=== PATIENT | female | born 1980 | race Caucasian/White ===

== ENCOUNTER 2018-08-16 14:28 | Outpatient (CLI) | payer MEDICAID, SELFPAY | END 2018-08-16 14:48 | PROVIDERS: PCP Nurse Practitioner Family; Visit Provider Nurse Practitioner Family | DX: B20 Human immunodeficiency virus [HIV] disease (principal); Z79.899 Other long term (current) drug therapy; B18.2 Chronic viral hepatitis C | CPT/HCPCS: 99214 ==

== ENCOUNTER 2018-08-27 13:30 | Outpatient (CLI) | payer MEDICAID, SELFPAY | END 2018-08-27 13:50 | PROVIDERS: PCP Nurse Practitioner Family; Referring Provider Nurse Practitioner Family; Visit Provider Internal Medicine Infectious Disease | DX: B20 Human immunodeficiency virus [HIV] disease (principal); Z79.899 Other long term (current) drug therapy; Z23 Encounter for immunization | CPT/HCPCS: 90471; 90472; 90686; 90715; 99215 ==

== ENCOUNTER 2018-10-08 16:56 | Outpatient (CLI) | payer MEDICAID, SELFPAY ==
--- NOTE | 2018-10-08 16:59 | W.CCNOTE ---
Date of service: 10/08/18 Time of Service: 17:00 Comprehensive Care Clinic Note Note: [facility] [address] [place] [address] [facility] Follow Up Visit Name: Jessica Calloway Date of : 1980 Date of Service: 10/08/2018 SUBJECTIVE: ?I haven?t been injecting. It?s been many months. I?m not using and not even having any Twisted Teas. I have an apartment now and a phone so I can get the hep C medication delivered to me. I wanted to start it before this but not having a phone got in the way. I?m going every day to the clinic for my Suboxone. I have been taking my HIV medicine every day and haven?t missed any.? Jessica is seen today at her request to talk about hepatitis C with Mavyret 3 tablets a day which was supposed to have started 2 months ago ? in fact the Prior Authorization for the medication expires in 2 days. The [facility], [facility], has had the information but say they need a new RX. A new PA will also have to be done. She says she is committed to taking it at this point. Her Substance Abuse MAT Clinic counselor says she is dosing and her UDSs have been appropriate. ROS: She has not had fevers, chills, night sweats but admits she does sweat a lot anyway. No neck pain or stiffness, chest pain or palpitations or shortness of breath. Denies abdominal pain or bloating, GI distress or N/V/D. She has some generalized joint aching but no swelling or decreased ROM. Denies swelling of her legs and ankles. Has had no injection site abscesses. LNMP: Now Past Medical History: Severe OUD and poly substance abuse with frequent relapses, especially to Cocaine and BZD abuse. HCV since early with a liver biopsy in 2002 that showed stage 3 fibrosis. A fibroscan was done at [facility] on 11/22/2017 again showing advanced hepatic fibrosis (F3). She is treatment naive. She was Dx with HIV in 2013 and started HAART in 2016. PTSD, Anxiety/Depression and she continues to see her psychiatrist. Social History: Has her own apartment in [place] and now has a phone. Health Insurance: [place] Medicaid - active Other Psychosocial Considerations: Has some transportation challenges but is getting to the MAT clinic to dose with the Suboxone 8 mg a day. Family History: Addiction, bipolar, depression Jessica Calloway, 1980 pg2. Immunization History: Flu vaccine received when she had a MD visit for HIV F/U on Monday08/27/2018 OBJECTIVE Temp: 98.3 Pulse: 80 Resp: 14 BP: 120/72 General: Awake, alert, AINAD, Weight 209# Skin: faded tract richardson and no abscesses. W/D. Eyes: Non icteric Neck: supple, non-tender Cardiac: RRR No MCRG Chest/Lungs: Clear Abdomen: obese, NT, ND, no palp OGM Extremities: No edema Musculoskeletal: no joint effusions, FROM Lymph: non palp Neuro: gait strong and steady, no tremor Psych: Good eye contact, cooperative attitude, normal affect, speech clear and coherent, mood mildly anxious, memory intact for short and fpc, orientation intact x4, fairly good attention span, normal thought process and content. ASSESSMENT/PLAN: 1. Long standing HCV Had Prior Authorization Approval from her health insurance to pay for RX [place]. Mavyret 100/40/mg tabs, 3 tabs once daily for 8 weeks that was valid from 08/10/2018 ? 10/10/2018 but she had not phone and was not able to get the prescription from the specialty pharmacy. A repeat PA will be completed after contacting the pharmacy and getting more information on what they need besides a new RX. I will help to facilitate her connecting to the pharmacy once a new PA is Approved.. 2. Severe OUD and poly substance abuse, H/O IVDU Cassie is to continue to dose daily with the Suboxone 8 mg and take all her other medications as prescribed. Abstain for all illicit drug use, no IVDU and keep all her counseling appointments. She is also to keep all the appointments she has wit her psychiatrist and take her psych meds as directed. MD visit scheduled: Due Early in 2019 and RCT will need to be arranged to bring her here. Lab Work: UCG negative on dip at the clinic last Monday. ASO: Keep contact with [place] for maintaining secure housing. Provider of Care: Sarah Ding NP
--- NOTE | 2018-10-10 17:01 | CCCE_ITS ---
Date of service: 10/08/18 Time of Service: 17:00 Comprehensive Care Clinic Note Note: [facility] [address] [place] [address] [facility] Follow Up Visit Name: Jessica Calloway Date of : 1980 Date of Service: 10/08/2018 SUBJECTIVE: ?I haven?t been injecting. It?s been many months. I?m not using and not even having any Twisted Teas. I have an apartment now and a phone so I can get the hep C medication delivered to me. I wanted to start it before this but not having a phone got in the way. I?m going every day to the clinic for my Suboxone. I have been taking my HIV medicine every day and haven?t missed any.? Jessica is seen today at her request to talk about hepatitis C with Mavyret 3 tablets a day which was supposed to have started 2 months ago ? in fact the Prior Authorization for the medication expires in 2 days. The [facility], has had the information but say they need a new RX. A new PA will also have to be done. She says she is committed to taking it at this point. Her Substance Abuse MAT Clinic counselor says she is dosing and her UDSs have been appropriate. ROS: She has not had fevers, chills, night sweats but admits she does sweat a lot anyway. No neck pain or stiffness, chest pain or palpitations or shortness of breath. Denies abdominal pain or bloating, GI distress or N/V/D. She has some generalized joint aching but no swelling or decreased ROM. Denies swelling of her legs and ankles. Has had no injection site abscesses. LNMP: Now Past Medical History: Severe OUD and poly substance abuse with frequent relapses , especially to Cocaine and BZD abuse. HCV since early with a liver biopsy in 2002 that showed stage 3 fibrosis. A fibroscan was done at [facility] on again showing advanced hepatic fibrosis (F3). She is treatment naive. She was Dx with HIV in 2013 and started HAART in 2016. PTSD, Anxiety/Depression and she continues to see her psychiatrist. Social History: Has her own apartment in [place] and now has a phone. Health Insurance: [place] Medicaid - active Other Psychosocial Considerations: Has some transportation challenges but is getting to the MAT clinic to dose with the Suboxone 8 mg a day. Family History: Addiction, bipolar, depression Jessica Calloway, 1980 pg2. Immunization History: Flu vaccine received when she had a MD visit for HIV F/U on Monday08/27/2018 OBJECTIVE Temp: 98.3 Pulse: 80 Resp: 14 BP: 120/72 General: Awake, alert, AINAD, Weight 209# Skin: faded tract richardson and no abscesses. W/D. Eyes: Non icteric Neck: supple, non-tender Cardiac: RRR No MCRG Chest/Lungs: Clear Abdomen: obese, NT, ND, no palp OGM Extremities: No edema Musculoskeletal: no joint effusions, FROM Lymph: non palp Neuro: gait strong and steady, no tremor Psych: Good eye contact, cooperative attitude, normal affect, speech clear and coherent, mood mildly anxious, memory intact for short and mcc, orientation intact x4, fairly good attention span, normal thought process and content. ASSESSMENT/PLAN: 1. Long standing HCV Had Prior Authorization Approval from her health insurance to pay for RX [place]. Mavyret 100/40/mg tabs, 3 tabs once daily for 8 weeks that was valid from 08/10/2018 ? 10/10/2018 but she had not phone and was not able to get the prescription from the specialty pharmacy. A repeat PA will be completed after contacting the pharmacy and getting more information on what they need besides a new RX. I will help to facilitate her connecting to the pharmacy once a new PA is Approved.. 2. Severe OUD and poly substance abuse, H/O IVDU Cassie is to continue to dose daily with the Suboxone 8 mg and take all her other medications as prescribed. Abstain for all illicit drug use, no IVDU and keep all her counseling appointments. She is also to keep all the appointments she has wit her psychiatrist and take her psych meds as directed. MD visit scheduled: Due Early in 2019 and RCT will need to be arranged to bring her here. Lab Work: UCG negative on dip at the clinic last Monday. ASO: Keep contact with [place] for maintaining secure housing. Provider of Care: Sarah Ding NP
== END 2018-10-08 17:16 ==
PROVIDERS: PCP Nurse Practitioner Family; Visit Provider Nurse Practitioner Family
DX: B18.2 Chronic viral hepatitis C (principal); B20 Human immunodeficiency virus [HIV] disease; Z79.899 Other long term (current) drug therapy; F11.20 Opioid dependence, uncomplicated
CPT/HCPCS: 99214

== ENCOUNTER 2019-03-05 10:15 | Outpatient (CLI) | payer MEDICAID, SELFPAY ==
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
== END 2019-03-05 10:35 ==
PROVIDERS: PCP Nurse Practitioner Family; Visit Provider Nurse Practitioner Family
DX: B20 Human immunodeficiency virus [HIV] disease (principal); B18.2 Chronic viral hepatitis C; Z79.899 Other long term (current) drug therapy
CPT/HCPCS: 99214

== ENCOUNTER 2019-09-20 14:24 | Outpatient (CLI) | payer MEDICAID, SELFPAY ==
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
== END 2019-09-20 14:44 ==
PROVIDERS: PCP Nurse Practitioner Family; Visit Provider Nurse Practitioner Family
DX: B20 Human immunodeficiency virus [HIV] disease (principal); B18.2 Chronic viral hepatitis C; Z79.899 Other long term (current) drug therapy; F11.20 Opioid dependence, uncomplicated; F43.10 Post-traumatic stress disorder, unspecified
CPT/HCPCS: 99214

== ENCOUNTER 2021-01-15 15:35 | Outpatient (CLI) | payer MEDICAID, SELFPAY ==
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
== END 2021-01-15 15:36 | disposition home or self-care (01) ==
LOC: CCC 15:36
PROVIDERS: PCP Nurse Practitioner Family; Visit Provider Nurse Practitioner Family
DX: B20 Human immunodeficiency virus [HIV] disease (principal); Z79.899 Other long term (current) drug therapy; F11.20 Opioid dependence, uncomplicated; F43.10 Post-traumatic stress disorder, unspecified; F39 Unspecified mood [affective] disorder; L66.2 Folliculitis decalvans
CPT/HCPCS: 99214

== ENCOUNTER 2021-04-29 15:07 | Outpatient (CLI) | payer MEDICAID, SELFPAY ==
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
== END 2021-04-29 15:08 | disposition home or self-care (01) ==
LOC: CCC 15:09
PROVIDERS: PCP Nurse Practitioner Family; Visit Provider Nurse Practitioner Family
DX: B20 Human immunodeficiency virus [HIV] disease (principal); Z79.899 Other long term (current) drug therapy; F11.20 Opioid dependence, uncomplicated; F41.9 Anxiety disorder, unspecified
CPT/HCPCS: 99214

== ENCOUNTER 2021-08-30 09:00 | Outpatient (CLI) | payer MEDICAID, SELFPAY ==
--- NOTE | 2021-08-30 14:05 | CCCE_ITS ---
Date of service: 08/30/21 Time of Service: 09:[address] [facility] Clinic Note Note: Jessica is driven to clinic today by her oil field caser from [facility] to have a ZOOM follow up appointment here with Dr. Morales who was at the [facility] ID clinic. This visit did take place. Jessica is due for menactra#1 vaccine and also a Flu vaccine injection. T: 97.6, P: 78, R: 16, BP: 128/80 Weight 196# GSK Menactra #1 IM LA Lot # [id number], exp 09/04/2021 GSK Fluarix 0.5ml IM RA Lot # [id number], exp 05/05/2022 Health maintenance, HIV, High Risk superintendent container terminal medications F/U with blood work soon Sarah Ding NP
--- NOTE | 2021-08-30 14:05 | W.CCNOTE ---
Date of service: 08/30/21 Time of Service: 09:00 [facility] Note Note: Jessica is driven to clinic today by her therapeutic case manager from [facility] to have a ZOOM follow up appointment here with Dr. Morales who was at the [facility] ID clinic. This visit did take place. Jessica is due for menactra#1 vaccine and also a Flu vaccine injection. T: 97.6, P: 78, R: 16, BP: 128/80 Weight 196# GSK Menactra #1 IM LA Lot # [id number], exp 09/04/2021 GSK Fluarix 0.5ml IM RA Lot # [id number], exp 05/05/2022 Health maintenance, HIV, High Risk intermediate manager medications F/U with blood work soon Sarah Ding NP
== END 2021-08-30 09:01 | disposition home or self-care (01) ==
LOC: CCC 14:03
PROVIDERS: PCP Nurse Practitioner Family; Visit Provider Nurse Practitioner Family
DX: Z23 Encounter for immunization (principal); B20 Human immunodeficiency virus [HIV] disease; Z79.899 Other long term (current) drug therapy
CPT/HCPCS: 90471; 90686